=== PATIENT | female | born 1975 | race Caucasian/White ===

== ENCOUNTER → 2021-01-11 | Outpatient (CLI) | payer MEDICARE, OTHER ==
[~2021-01-11] MED LIST: AUGMENTIN 875-1 EACH PO; BENTYL 20MG TAB20 MG PO; CARAFATE1 GM/10 ML PO; CEFUROXIME250 MG PO; CYCLOBENZAPRINE10 MG PO; DEPAKOTE ER500 MG PO; LEVOTHYROXINE50 MCG PO; MEDROL DOSEPAK 24 MG PO; NAPROSYN500 MG PO; SINGULAIR10 MG PO; VRAYLAR PO; VYVANSE30 MG PO; WELLBUTRIN XL150 M1 PO; ZOFRAN ODT 4 MG4 MG SL; ZOFRAN4 MG PO; ZYRTEC10 MG PO
== END ==
LOC: SLEEP 10:52
DX: G47.33 Obstructive sleep apnea (adult) (pediatric) (principal)
CPT/HCPCS: 95810

== ENCOUNTER → 2021-03-05 | Outpatient (CLI) | payer MEDICARE, OTHER ==
[2021-03-05 11:26] LABS: HEMOGLOBIN 13.2 gm/dl (12.3-15.3); RED BLOOD COUNT 4.34 M/UL (4.00-5.10)
[2021-03-06 08:14] LABS: T3 UPTAKE 27 % (24-39)
== END ==
LOC: LAB 10:18
PROVIDERS: Psychiatry & Neurology Psychiatry
DX: F31.9 Bipolar disorder, unspecified (principal); F90.9 Attention-deficit hyperactivity disorder, unspecified type; R53.83 Other fatigue
CPT/HCPCS: 36415; 80076; 82150; 84439; 84443; 84479; 85027

== ENCOUNTER 2021-03-27 22:09 | Emergency (ER) | payer MEDICARE, OTHER ==
[~2021-03-27 22:09] MED LIST changes: -ZOFRAN4 MG PO
[2021-03-27 23:36] LABS: HEMOGLOBIN 13.7 gm/dl (12.3-15.3); RED BLOOD COUNT 4.47 M/UL (4.00-5.10); WHITE BLOOD COUNT 11.2 K/UL (4.5-11.0)
[2021-03-27 23:51] LABS: BUN/CREATININE RATIO 20 (0-10)
[2021-03-28] MEDS ORDERED: ZOFRAN4 MG PO (01:50)
[2021-03-28] MEDS ORDERED: BENTYL 20MG TAB20 MG PO (01:50)
== END 2021-03-28 02:00 | disposition home or self-care (01) ==
LOC: ER1 22:09
PROVIDERS: Physician Assistant Medical
DX: R10.11 Right upper quadrant pain (principal); R10.12 Left upper quadrant pain; R10.31 Right lower quadrant pain; R10.32 Left lower quadrant pain; Z90.49 Acquired absence of other specified parts of digestive tract; Z88.5 Allergy status to narcotic agent; Z79.899 Other long term (current) drug therapy
CPT/HCPCS: 80053; 81001; 82150; 83690; 85025; 85652; 86140; 96374; 99284; J2405; J7030

== ENCOUNTER → 2021-12-17 | Outpatient (CLI) | payer MEDICARE, OTHER ==
[~2021-12-17] MED LIST changes: +ZOFRAN4 MG PO
== END ==
LOC: KOH-I 10:28
DX: M25.572 Pain in left ankle and joints of left foot (principal); M79.89 Other specified soft tissue disorders
CPT/HCPCS: 73610

== ENCOUNTER 2022-01-20 20:43 | Emergency (ER) | payer MEDICARE, OTHER ==
[2022-01-20] MEDS ORDERED: IBUPROFEN600 MG PO (21:30)
== END 2022-01-20 21:46 | disposition home or self-care (01) ==
LOC: ER1 20:43
DX: S93.401A Sprain of unspecified ligament of right ankle, initial encounter (principal); X50.9XXA Other and unspecified overexertion or strenuous movements or postures, initial encounter
CPT/HCPCS: 73590; 73610; 96372; 99283; J1885

== ENCOUNTER → 2022-02-22 | Outpatient (CLI) | payer MEDICARE, OTHER ==
[~2022-02-22] MED LIST changes: +IBUPROFEN600 MG PO
== END ==
LOC: KOH-I 15:50
DX: S82.401A Unspecified fracture of shaft of right fibula, initial encounter for closed fracture (principal); M89.9 Disorder of bone, unspecified
CPT/HCPCS: 73610

== ENCOUNTER → 2022-04-06 | Outpatient (CLI) | payer MEDICARE, OTHER | LOC: KOH-I 09:59 | DX: S82.831K Other fracture of upper and lower end of right fibula, subsequent encounter for closed fracture with nonunion (principal) | CPT/HCPCS: 73610 ==

== ENCOUNTER → 2022-04-27 | Outpatient (CLI) | payer MEDICARE, OTHER | LOC: KOH-I 08:55 | DX: S82.832K Other fracture of upper and lower end of left fibula, subsequent encounter for closed fracture with nonunion (principal) | CPT/HCPCS: 73610 ==

== ENCOUNTER 2022-06-08 14:47 | Emergency (ER) | payer MEDICARE, OTHER ==
[2022-06-08 15:57] LABS: HEMOGLOBIN 14.4 gm/dl (12.3-15.3); RED BLOOD COUNT 4.55 M/UL (4.00-5.10); WHITE BLOOD COUNT 9.5 K/UL (4.5-11.0)
[2022-06-08 16:39] LABS: BUN/CREATININE RATIO 15 (0-10)
[2022-06-08] MEDS ORDERED: REGLAN5 MG PO (20:16)
== END 2022-06-08 20:19 | disposition home or self-care (01) ==
LOC: ER1 14:47
PROVIDERS: Emergency Medicine
DX: K21.00 Gastro-esophageal reflux disease with esophagitis, without bleeding (principal); G44.209 Tension-type headache, unspecified, not intractable; Z20.822 Contact with and (suspected) exposure to COVID-19
CPT/HCPCS: 0240U; 80053; 81001; 82550; 82553; 83690; 84484; 84703; 85025; 96374; 96375; 99284; C9113; J1885; J2765; Q9967